=== PATIENT | female | born 1990 | race Caucasian/White ===

== ENCOUNTER → 2019-10-04 | Outpatient (CLI) | payer BC ==
[~2019-10-04] MED LIST: IBU600 MG PO; MOTRIN 600600 MG/TAB PO; PERCOCET 325 MG1 TA2 PO; PRENATAL1 TA1 PO
== END ==
LOC: MC.RAD 13:00
DX: N64.4 Mastodynia (principal)

== ENCOUNTER → 2019-10-08 | Outpatient (CLI) | payer BC | LOC: COL.CARD 07:55 | DX: R07.9 Chest pain, unspecified (principal) ==